=== PATIENT | female | born 1990 ===

== ENCOUNTER 2024-09-27 08:32 | Emergency (ER) | payer OTHER, SELFPAY ==
[2024-09-27 08:35] VITALS: BP 121/83; PULSE 120; RESP 18; TEMP 37.6; O2SAT 99; BMI 32.1
[2024-09-27] MEDS: diazePAM 5 MG/ML inj 10 MG IM (09:28)
[2024-09-27] MEDS: OLANZapine 5 MG/ML inj 10 MG IM (09:34)
--- OUTSIDE RECORDS SUMMARY | 2024-09-27 09:42 | XMS_ITS | Clinical Summary ---
Author Organization [employer] [facility] Address [address] [place] [id number] Care Team Providers Care Labor Relations Analyst Name Role Phone Pcp, No Primary Care Provider Unavailabl e Allergies No known active allergies Medications PNV NO.115/IRON FUMARATE/FA ( #[id number] C ACID ORAL) Take 1 tablet by mouth. Active docusate (COLACE) 100 mg capsule Take 100 mg by mouth once daily. Active sertraline (ZOLOFT) 50 mg tablet Take 50 mg by mouth once daily. Active oxyCODONE-acet aminophen, 5-325 mg, (PERCOCET) 5-325 mg per tabletIndicati ons:Delivered by section Take 1-2 tablets by mouth every 4 hours if needed for Pain (Severe pain despite Ibuprofen.). Max acetaminophen dose: 4000mg in 24 hrs. 40 tablet 0 5 Active QUEtiapine (SEROQUEL) 25 mg tabletIndicati ons:Depression affecting , antepartum (HC) Take 12.5-25 mg oral BID PRN for acute agitation. Take 25-50 mg oral daily at bedtime PRN for sleep. 20 tablet 0 5 Active ferrous sulfate, 65 mg elemental, 325 mg (65 mg iron) tabletIndicati ons:Acute blood loss anemia Take 1 tablet by mouth 2 times daily with meals. 60 tablet 2 5 Active polyethylene glycol (MIRALAX; GLYCOLAX) 17 g powder for solutionIndica tions:Delivere d by section Take 17 g by mouth once daily if needed for Constipation (If docusate (COLACE) ineffective.). 10 Packet 0 5 Active ibuprofen (ADVIL; MOTRIN) 600 mg tabletIndicati ons:Delivered by section Take 1 tablet by mouth every 6 hours if needed for Pain (First line pain control - mild to moderate pain). Maximum of 3200 mg in 24 hours. 60 tablet 0 5 Active ascorbic acid (VITAMIN C) 250 mg tabletIndicati ons:Acute blood loss anemia Take 1 tablet by mouth 2 times daily with meals. 60 tablet 2 5 Active Active Problems Problem Noted Date Diagnosed Date Premature rupture of membranes during , delivered 08/16/2014 Acute blood loss anemia 08/15/2014 Delivered by section 08/14/2014 Umbilical cord prolapse in labor and delivery, d elivered 08/14/2014 Poor social situation 07/31/2014 Overview (07/31/2014): Patient currently incarcerated for drug possession/sales. Two previous children adopted out (CPS involved) Depression affecting , antepartum 07/31 Hx of substance abuse 07/31/2014 Overview (07/31/2014): History of methamphetamine use (IV and smoked); history of alcohol abuse Hepatitis C 07/30/2014 Resolved Problems Problem Noted Date Diagnosed Date Resolved Date premature rupture of membranes in third trimester 07/30/2014 08/16/2014 Supervision of normal first 07/01/2011 07/30/2014 Irregular uterine contractions 07/01/2011 07/30/2014 Vaginal discharge 05/08/2011 07/30/2014 Family History Medical History Relation Name Comments Alcohol/Drug Father Alcohol/Drug Maternal Grandmother Cancer Maternal Grandmother Diabetes Maternal Grandmother Alcohol/Drug Mother Diabetes Mother GI Disease Mother Psychiatric illness Mother Cancer Paternal Grandfather Alcohol/Drug Sister Alcohol/Drug Other 1 Alcohol/Drug Other 2 Relation Name Status Comments Father Maternal Grandmother Mother Paternal Grandfather Sister Other 1 Other 2 Social History Tobacco Use Types Packs/Day Years Used Date Smoking Tobacco: Former Cigarettes 0.5 15 0 03/13/1999 - 03/13/2014 Smokeless Tobacco: Never Tobacco Cessation:Counseling Given: No Alcohol Use Standard Drinks/Week Comments No 0 (1 standard drink = 0.6 oz pur e alcohol) Comments Unknown Sex and Gender Information Value Date Recorded Sex Assigned at Not on file Legal Sex 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 Please review and update details. 06/2011 Term 39w 0d 3.74 kg (8 lb 4 oz) F Vag N Living Comments:used 'shots' to prevent labor 01/2013 Term 39w 0d 2.92 kg (6 lb 7 oz) M Vag Living Last Filed Vital Signs Vital Sign Reading Time Taken Comments Blood Pressure 123/79 11/06/2021 8:52 AM CDT Pulse 89 11/06/2021 8:52 AM CDT Temperature 36.7 C (98 F) 11/06/2021 8:52 AM CDT Respiratory Rate 16 11/06/2021 8:52 AM CDT Oxygen Saturation 98% 11/06/2021 8:52 AM CDT Inhaled Oxygen Concentration - - Weight 54.4 kg (120 lb) 10/29/2021 4:09 PM CDT Height 160 cm (5' 3) 10/29/2021 4:09 PM CDT Body Mass Index 21.26 10/29/2021 4:09 PM CDT Plan of Treatment Health Maintenance Due Date Last Done Comments Tetanus booster 05/30/2003 Depression screening for age 12+ 2004 HIV for age 15-65 05/30/2007 BMI (ht and wt on same day) for age 18+ 2010 Hepatitis C screening for ag e 18-79 2010 Hepatitis B series for 19+ ( 1 of 3 - 19+ 3-dose series) 05/30/2011 Pap test for age 21-65 2013 COVID-19 vaccine series (2023- season) 2023 Influenza Vaccine (#1) 2024 Pneumococcal series for age 6-49 Aged Out No longer eligible based on patient's age to complete [place] [address] [facility] [address] MEDICAID [facility] Advance Directives * Full Code (Latest Code Status on File) Date Activated Date Inactivated Comments 08/15/2014 12:13 AM 08/17/2014 3:20 PM * Full Code Date Activated Date Inactivated Comments 08/14/2014 8:48 PM 08/15/2014 12:11 AM * Full Code Date Activated Date Inactivated Comments 07/30/2014 10:19 PM 08/14/2014 8:48 PM Question Answer Comments Code Status Discussion: Discussed * Full Code Date Activated Date Inactivated Comments 07/30/2014 8:02 PM 07/30/2014 10:19 PM * Full Code Date Activated Date Inactivated Comments 07/30/2014 7:30 PM 07/30/2014 8:02 PM Care Teams Labor Relations Analyst Relationship Specialty Start Date End Date Pcp, No . PCP - General 01/27/19
[2024-09-27 09:59] LABS: Hematocrit 42.2 % (33.0-51.0); Hemoglobin* 14.7 gm/dL (12.0-16.0); Immature Granulocytes Pct Auto 0.1 %; Mean Corpuscular HGB Conc 35 gm/dL (32-36); Mean Corpuscular Hemoglobin 31 pg (26-34); Mean Corpuscular Volume 88 fL (80-100); RDW Coefficient of Variation % 12.2 % (11.5-15.5); Red Blood Count 4.80 m/uL (4.00-5.20); White Blood Count* 14.10 K/uL (4.50-11.00)
[2024-09-27 10:00] VITALS: O2SAT 96
[2024-09-27 10:02] LABS: Immature Granulocytes Abs Auto 0.00 K/uL (0.00-0.30); Lymphocytes Absolute Auto 4.30 K/uL (0.90-2.90); Slide Review Reflex No
[2024-09-27 10:06] VITALS: PULSE 91; RESP 20; O2SAT 96
[2024-09-27 10:07] LABS: Chloride* 106 mmol/L (96-114)
[2024-09-27 10:08] LABS: Albumin* 4.7 g/dL (3.3-5.0); Potassium* 3.5 mmol/L (3.6-5.1); Sodium* 138 mmol/L (135-149)
[2024-09-27 10:10] LABS: Blood Urea Nitrogen* 14 mg/dL (5-24); Creatinine* 1.1 mg/dL (0.5-1.5); Est. Creatinine Clearance* 52.74; Estimated Glomerular Filt Rate 68 ml/min
[2024-09-27 10:11] LABS: Alanine Aminotransferase* 148 U/L (4-35); Alkaline Phosphatase* 107 U/L (40-150); Anion Gap 10 mEq/L (7-15); Aspartate Amino Transferase* 93 U/L (12-35); Bilirubin Direct* 0.1 mg/dL (0.0-0.5); Bilirubin Total* 1.0 mg/dL (0.1-1.5); Calcium* 9.5 mg/dL (8.4-10.6); Carbon Dioxide* 22 mmol/L (20-32); Glucose* 99 mg/dL (60-115); Total Protein* 9.0 g/dL (6.0-8.3)
[2024-09-27 10:12] LABS: Acetaminophen* < 10.0 ug/mL (10.0-30.0); Ethanol* < 0.01 % (0.01-0.03); HCG Qualitative Serum* Negative (Negative); Salicylate* < 1.0 mg/dL (1.0-10)
--- NOTE | 2024-09-27 10:34 | ED.GENADULT ---
HPI - General Adult General Chief complaint: Psychiatric Problem/Disorder Stated complaint: Mental health Time Seen by Provider: 09/27/24 08:54 History of Present Illness HPI narrative: patient asked about is water wants some right way. Friend stated pt has been off medications for 3 days and hx of schizophrenia. patient is talking nonstop and about hotel issue and a razor blade. is seeing things like a person called Lenon and the devil should up , and a dildo showed up. was crucified, will random talk about stuff. talking about chains, being tied up. 34-year-old woman presenting to the emergency department apparently dropped off by a friend who might be named Blayne. Is noted to be acting very erratically. Quite unclear rambling history. Apparently is endorsing various hallucinations. Immediately talks about breathing in some gas under pressure at a store. She notes apparently that has risperidone available but has not been taking it; actually is here for refill. Able to obtain some records later. Looks like there is a history of abuse. And drug use including methamphetamine abuse with acute psychosis. Does admit she is having some trouble focusing. It sounds as though she would like some medication to help mentioning Adderall as well. Is not endorsing any SI or HI. Agitated and seems to be wanting to leave but also redirectable. Compelled to taken pocket a number of small items from the ER. Ultimately redirectable to her room. Agrees to receive some medications to help her focus as she was requesting. Looks like there might be a diagnosis of schizophrenia. Most recent medication list available from [facility] Emergency Department on 11/05/2021 shows olanzapine, and droperidol and sertraline and quetiapine that were all used in the hospital. At that time also methamphetamine was noted in the urine Related Data Home Medications ?Medication ?Instructions ?Recorded ?Confirmed Risperdal 09/27/24 Allergies Allergy/AdvReac Type Severity Reaction Status Date / Time No Known Drug Allergies Allergy Verified 09/27/24 08:53 Review of Systems Status of ROS: Reports: 6 or more systems reviewed and unremarkable except as noted in History and below [facility] Medical History Schizophrenia ?F20.9 - Schizophrenia, unspecified (ICD-10) Exam Narrative: Exam Narrative: Earnest. Talking rapidly and persistently. Tangential and not coherent. Articulating clearly. Cranial nerves 2-12 intact. Does not know where she is. Disheveled in appearance with large blonde wig. Number of tattoos under skin. Skin otherwise is warm and dry. She has what looks like a trauma associated scar on the right forearm through a tattoo and similar on the left but also with what looks like well healed self-inflicted cuts on the left forearm. Breathing easily. Heart is tachycardic. She is ambulating steadily. Pupils are 4 mm and appropriately reactive. Const: Vital Signs, click to edit/add: Vital Signs - 24 hr 09/27/24 08:35 09/27/24 10:00 09/27/24 10:06 Temperature 99.7 F H Pulse Rate [Pulse Oximeter] 120 H 91 Respiratory Rate 18 20 Blood Pressure [Ri ght Upper Arm] 121/83 Pulse Oximetry 99 96 96 Oxygen Delivery Me thod Room Air Room Air 09/27/24 11:52 09/27/24 16:34 Temperature 97.6 F Pulse Rate [Pulse Oximeter] 85 65 Respiratory Rate 16 19 Blood Pressure [Ri ght Upper Arm] 121/96 H 107/71 Pulse Oximetry 96 100 Oxygen Delivery Me thod Room Air Room Air Documenting provider has reviewed patient's vital signs: yes Course Vital Signs Vital signs: Initial Vital Signs Temperature 99.7 F H 09/27/24 08:35 Temperature Source Temporal Artery Scan 09/27/24 08:35 Pulse Rate 120 H 09/27/24 08:35 Respiratory Rate 18 09/27/24 08:35 Blood Pressure 121/83 09/27/24 08:35 Blood Pressure Mean 95 09/27/24 08:35 Blood Pressure Position Sitting 09/27/24 08:35 Pulse Oximetry 99 09/27/24 08:35 Oxygen Delivery Method Room Air 09/27/24 08:35 Vital Signs Temperature 99.7 F H 09/27/24 08:35 Pulse Rate 120 H 09/27/24 08:35 Respiratory Rate 18 09/27/24 08:35 Blood Pressure 121/83 09/27/24 08:35 Pulse Oximetry 99 09/27/24 08:35 Oxygen Delivery Method Room Air 09/27/24 08:35 Temperature 97.6 F 09/27/24 16:34 Pulse Rate 65 09/27/24 16:34 Respiratory Rate 19 09/27/24 16:34 Blood Pressure 107/71 09/27/24 16:34 Pulse Oximetry 100 09/27/24 16:34 Oxygen Delivery Method Room Air 09/27/24 16:34 Medications Administered Medications: Discontinued Medications Generic Name Dose Route Start Last Admin Trade Name Brissa PRN Reason Stop Dose Admin Diazepam 10 mg 09/27/24 09:16 09/27/24 09:28 Diazepam 5 Mg/Ml Inj IM 09/27/24 09:17 10 mg ONCE ONE Administration Olanzapine 10 mg 09/27/24 09:16 09/27/24 09:34 Olanzapine 5 Mg/Ml Inj IM 09/27/24 09:17 10 mg ONCE ONE Administration Risperidone 1 mg 09/27/24 12:30 09/27/24 13:04 Risperidone 1 Mg Tablet PO 09/27/24 12:31 1 mg ONCE ONE Administration Medical Decision Making MDM Narrative Medical decision making narrative: Agitation absent flows. Appears to be having acute psychosis of uncertain etiology at this point. Is disoriented such that I think would be unsafe without responsible adult in attendance but otherwise even than as certainly decompensated. Did offer her some medications to help her relax. Simply cannot obtain accurate history in current state. Accepted injections of Zyprexa and Valium. May need hospitalization for stabilization. [facility]. phone [phone]. Appears to be decompensating over the last month in particular. Has not been following up. History of screening for commitment but in aly zone. Dx of suspected schizophrenia and methamphetamine substance use. Suspected use 3 weeks ago? Apparently lives with boyfriend (Marciano Siegel) and his mom (Reny). Monitored off yesterday and is not welcome back due to hallucinations according to structural engineering drafting officer. Often says that she is not welcome back in the home but boyfriend sneaks her back in. Did manage to sleep and woke much more coherent. Still with unclear history. Suspected that she had been hospitalized at [facility] and then this becomes unclear again. She is however expressing interest in being hospitalized for stabilization or ?focus?. Did manage to eat. Denies recent substance use. I then contacted [facility] to begin the process for psychiatric hospitalization. Laurie became increasingly agitated requesting to go. Notes how she is not asking for drugs but that the Valium she thinks was particularly helpful in wondering if she can get some more. Also requesting to smoke. It is my understanding that she is not welcome back at home due to decompensation as noted above. If this decompensation is only psychiatric then I think is certainly holdable. Ultimately I did place her on a 72 hour hold. Labs have returned. U tox is notable for methamphetamine and THC. Certainly could be acute psychosis drug related exacerbating underlying mental health difficulties. I have requested initiating dosing with risperidone. This was noted repeatedly in conversation and appears to be regularly dosed. She might also take Seroquel in the evenings. Had requested a phone to call. This was subsequently observed to be placed in the perineal area in some way. Was also found to have placed her wig in the vicinity. Was discouraged from placing sharp pieces of plastic from her water container in the same area. I did go to talk with Laurie about all this. She did allow for chaperoned perineal exam. The wig/hair she appears to prefer to have placed in this area but was not extracted from the vagina. With her permission I did do a bimanual exam to sweep for other foreign body in the vagina. Did remove an apple slice. Nothing else was palpated. 5:29 p.m.. No further events of significance during time of monitoring in the emergency department. I would consider Laurie medically cleared for placement in psychiatric facility. Urinalysis looks potentially infected but I would wait for urine cultures before treatment. Medical Records Medical records reviewed: Yes I reviewed the patient's medical records Lab Data Lab results reviewed: Yes I reviewed the patient's lab results Labs: Lab Results 09/27/24 09/27/24 09/27/24 Range/Units 09:41 12:00 13:07 WBC 14.10 H (4.50-11.00) K/uL RBC 4.80 (4.00-5.20) m/uL Hgb 14.7 (12.0-16.0) gm/dL Hct 42.2 (33.0-51.0) % MCV 88 (80-100) fL MCH 31 (26-34) pg MCHC 35 (32-36) gm/dL RDW Coeff of Joanie 12.2 (11.5-15.5) % Plt Count 320 (140-440) K/uL Neut % (Auto) 57.2 (42.0-72.0) % Lymph % (Auto) 30.4 (20-44) % [place] % (Auto) 8.1 (0.0-11.0) % Eos % (Auto) 3.6 (0.0-7.0) % Baso % (Auto) 0.6 (0.0-3.0) % Neut # (Auto) 8.10 H (1.7-7.0) K/uL Lymph # (Auto) 4.30 H (0.90-2.90) K/uL [place] # (Auto) 1.10 H (0.00-0.90) K/UL Eos # (Auto) 0.50 (0.00-0.50) K/uL Baso # (Auto) 0.10 (0.00-0.30) K/uL Abs Immat Gran (auto) 0.00 (0.00-0.30) K/uL Imm/Tot Granulo (auto) 0.1 % Sodium 138 (135-149) mmol/L Potassium 3.5 L (3.6-5.1) mmol/L Chloride 106 (96-114) mmol/L Carbon Dioxide 22 (20-32) mmol/L Anion Gap 10 (7-15) mEq/L BUN 14 (5-24) mg/dL Creatinine 1.1 (0.5-1.5) mg/dL Estimated Creat Clear 52.74 Estimated GFR 68 ml/min Glucose 99 (60-115) mg/dL Calcium 9.5 (8.4-10.6) mg/dL Total Bilirubin 1.0 (0.1-1.5) mg/dL Direct Bilirubin 0.1 (0.0-0.5) mg/dL AST 93 H (12-35) U/L ALT 148 H (4-35) U/L Alkaline Phosphatase 107 (40-150) U/L C-Reactive Protein 0.8 (0.5-1.0) mg/dL Total Protein 9.0 H (6.0-8.3) g/dL Albumin 4.7 (3.3-5.0) g/dL TSH 1.440 (0.270-4.20) uIU/mL HCG, Qual Negative (Negative) Urine Color (Yellow) Urine Appearance (Clear) Urine pH (5.0-8.5) Ur Specific [place] (1.000-1.030) Urine Protein (Negative) Urine Glucose (UA) (Negative) Urine Ketones (Negative) Urine Blood (Negative) Urine Nitrite (Negative) Urine Bilirubin (Negative) Urine Urobilinogen (0.2-1.0) Ur Leukocyte Esterase (Negative) Urine RBC (0-2) Urine WBC (0-5) Ur Squamous Epith Cells (None-Few) Urine Bacteria (None) Salicylates < 1.0 L (1.0-10) mg/dL Urine Opiates Screen Negative (Negative) Ur Oxycodone Screen Negative (Negative) Urine Methadone Screen Negative (Negative) Acetaminophen < 10.0 (10.0-30.0) ug/mL Ur Barbiturates Screen Negative (Negative) U Tricyclic Antidepress Negative (Negative) Ur Phencyclidine Scrn Negative (Negative) Ur Amphetamines Screen POSITIVE A (Negative) U Methamphetamines Scrn POSITIVE A (Negative) U Benzodiazepines Scrn Negative (Negative) Urine Cocaine Screen Negative (Negative) U Marijuana (THC) Screen POSITIVE A (Negative) Ur Drug Screen Comment See Note Ethyl Alcohol < 0.01 (0.01-0.03) % SARS-CoV-2 Ag (Rapid) Negative (Negative) 09/27/24 Range/Units 13:10 WBC (4.50-11.00) K/uL RBC (4.00-5.20) m/uL Hgb (12.0-16.0) gm/dL Hct (33.0-51.0) % MCV (80-100) fL MCH (26-34) pg MCHC (32-36) gm/dL RDW Coeff of Joanie (11.5-15.5) % Plt Count (140-440) K/uL Neut % (Auto) (42.0-72.0) % Lymph % (Auto) (20-44) % [place] % (Auto) (0.0-11.0) % Eos % (Auto) (0.0-7.0) % Baso % (Auto) (0.0-3.0) % Neut # (Auto) (1.7-7.0) K/uL Lymph # (Auto) (0.90-2.90) K/uL [place] # (Auto) (0.00-0.90) K/UL Eos # (Auto) (0.00-0.50) K/uL Baso # (Auto) (0.00-0.30) K/uL Abs Immat Gran (auto) (0.00-0.30) K/uL Imm/Tot Granulo (auto) % Sodium (135-149) mmol/L Potassium (3.6-5.1) mmol/L Chloride (96-114) mmol/L Carbon Dioxide (20-32) mmol/L Anion Gap (7-15) mEq/L BUN (5-24) mg/dL Creatinine (0.5-1.5) mg/dL Estimated Creat Clear Estimated GFR ml/min Glucose (60-115) mg/dL Calcium (8.4-10.6) mg/dL Total Bilirubin (0.1-1.5) mg/dL Direct Bilirubin (0.0-0.5) mg/dL AST (12-35) U/L ALT (4-35) U/L Alkaline Phosphatase (40-150) U/L C-Reactive Protein (0.5-1.0) mg/dL Total Protein (6.0-8.3) g/dL Albumin (3.3-5.0) g/dL TSH (0.270-4.20) uIU/mL HCG, Qual (Negative) Urine Color Yellow (Yellow) Urine Appearance Cloudy A (Clear) Urine pH 5.5 (5.0-8.5) Ur Specific [place] 1.020 (1.000-1.030) Urine Protein Negative (Negative) Urine Glucose (UA) Negative (Negative) Urine Ketones Negative (Negative) Urine Blood Negative (Negative) Urine Nitrite Positive A (Negative) Urine Bilirubin Negative (Negative) Urine Urobilinogen 0.2 (0.2-1.0) Ur Leukocyte Esterase Negative (Negative) Urine RBC 2-5 A (0-2) Urine WBC 5-10 A (0-5) Ur Squamous Epith Cells Moderate A (None-Few) Urine Bacteria Moderate A (None) Salicylates (1.0-10) mg/dL Urine Opiates Screen (Negative) Ur Oxycodone Screen (Negative) Urine Methadone Screen (Negative) Acetaminophen (10.0-30.0) ug/mL Ur Barbiturates Screen (Negative) U Tricyclic Antidepress (Negative) Ur Phencyclidine Scrn (Negative) Ur Amphetamines Screen (Negative) U Methamphetamines Scrn (Negative) U Benzodiazepines Scrn (Negative) Urine Cocaine Screen (Negative) U Marijuana (THC) Screen (Negative) Ur Drug Screen Comment Ethyl Alcohol (0.01-0.03) % SARS-CoV-2 Ag (Rapid) (Negative) Discharge Plan Discharge Clinical Impression: Psychosis, Drug use Patient Disposition: Xfer Psychiatric Hosp Condition: Stable Prescriptions: No Action Risperdal Stand Alone Forms: [employer] Info Instructions
[2024-09-27 11:52] VITALS: BP 121/96; PULSE 85; RESP 16; O2SAT 96
[2024-09-27 12:27] LABS: Cannabinoid Screen Urine POSITIVE (Negative); Methamphetamines Screen Urine POSITIVE (Negative); Tricyclic Antidepressant Urine Negative (Negative)
--- NOTE | 2024-09-27 13:45 | CRLHL7_ITS ---
For Patients: As a result of the Century Cures Act, medical imaging exams and procedure reports are released immediately into your electronic medical record. You may view this report before your referring provider. If you have questions, please contact your health care provider. Indication: Concern for concealed items Technique: Pelvis 1 view. Comparison: None. Findings: Bones: Alignment is normal. No fractures or bone lesions. Joint spaces: Joint spaces are preserved. No degenerative changes. Soft tissues: No definite evidence of radiopaque foreign body. Curvilinear contour projecting over the right lower pelvis may reflect a partially distended bladder. Impression: No definite evidence of radiopaque foreign body. Curvilinear contour projecting over the right lower pelvis may reflect a partially distended bladder. CT could be performed for further evaluation if there is continued clinical concern Dictated by Estefany Kemp MD @ 09/27/2024 2:12:18 PM (Electronically Signed)
[2024-09-27 13:52] LABS: SARS Antigen* Negative (Negative)
[2024-09-27 14:13] LABS: Appearance Urine Cloudy (Clear)
[2024-09-27 16:34] VITALS: BP 107/71; PULSE 65; RESP 19; TEMP 36.4; O2SAT 100
== END 2024-09-27 19:06 ==
PROVIDERS: Emergency Provider Family Medicine
DX: F29 Unspecified psychosis not due to a substance or known physiological condition (principal); F15.10 Other stimulant abuse, uncomplicated
CPT/HCPCS: 36415; 72170; 80048; 80076; 80143; 80179; 80306; 81001; 81003; 82077; 84443; 84703; 85025; 86140; 87086; 87426; 94761; 96372; 99284; 99285; A9270; J3360

== ENCOUNTER 2024-09-27 18:51 | Outpatient (CLI) | payer OTHER, SELFPAY | END 2024-09-27 18:52 | disposition home or self-care (01) | PROVIDERS: Visit Provider Family Medicine | DX: F29 Unspecified psychosis not due to a substance or known physiological condition (principal); F19.90 Other psychoactive substance use, unspecified, uncomplicated | CPT/HCPCS: A0425; A0428 ==